=== PATIENT | male | born 1935 | race Caucasian/White ===

== ENCOUNTER → 2017-02-02 | Outpatient (CLI) | payer MEDICARE, OTHER ==
[~2017-02-02] MED LIST: ASPI81CH CHEW; ASPI81TA82 PO; DIOV320T PO; HYDR-2768 PO; HYDR25TA5 PO; SYNT25TA PO; TRAM50TA PO; ZOCO40TA PO
[2017-02-02 12:49] LABS: FREE T4 0.87 NG/DL (0.76-1.46)
== END ==
LOC: CLAB 11:54
DX: E03.9 Hypothyroidism, unspecified (principal)
CPT/HCPCS: 36415; 84439; 84443

== ENCOUNTER 2017-03-22 18:40 | Emergency (ER) | payer MEDICARE, OTHER ==
[~2017-03-22] VITALS: Ht 177.8 cm; Wt 75.0 kg
[~2017-03-22 18:40] MED LIST changes: -ASPI81CH CHEW; -HYDR25TA5 PO
[2017-03-22 19:37] VITALS: BP 199/77; PULSE 56; RESP 16; TEMP 97.9; O2SAT 100
[2017-03-22] MEDS ORDERED: ASPI81CH CHEW (19:40)
[2017-03-22] MEDS ORDERED: HYDR25TA5 PO (19:40)
[2017-03-22] MEDS ORDERED: DIOV320T PO (19:40)
[2017-03-22] MEDS ORDERED: ZOCO40TA PO (19:40)
[2017-03-22] MEDS ORDERED: SYNT25TA PO (19:40)
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
[2017-03-22 21:19] VITALS: BP 162/73; PULSE 49; RESP 18; O2SAT 100
== END 2017-03-22 21:36 | disposition home or self-care (01) ==
LOC: NEPD 18:40
DX: S06.0X1A Concussion with loss of consciousness of 30 minutes or less, initial encounter (principal); S40.812A Abrasion of left upper arm, initial encounter; S40.811A Abrasion of right upper arm, initial encounter; S80.812A Abrasion, left lower leg, initial encounter; S80.811A Abrasion, right lower leg, initial encounter; M79.1 Myalgia; V89.2XXA Person injured in unspecified motor-vehicle accident, traffic, initial encounter; E03.9 Hypothyroidism, unspecified; I10 Essential (primary) hypertension; E78.00 Pure hypercholesterolemia, unspecified; Z86.79 Personal history of other diseases of the circulatory system; Z85.118 Personal history of other malignant neoplasm of bronchus and lung; Z85.528 Personal history of other malignant neoplasm of kidney
CPT/HCPCS: 70450; 72125; 99284

== ENCOUNTER → 2017-05-25 | Outpatient (CLI) | payer MEDICARE, OTHER ==
[~2017-05-25] MED LIST changes: +ASPI81CH CHEW; -ASPI81TA82 PO; -HYDR-2768 PO; +HYDR25TA5 PO; -TRAM50TA PO
[2017-05-25 12:58] LABS: FREE T4 0.95 NG/DL (0.76-1.46)
== END ==
LOC: CLAB 12:06
DX: E03.9 Hypothyroidism, unspecified (principal)
CPT/HCPCS: 36415; 84439; 84443

== ENCOUNTER → 2017-09-27 | Outpatient (CLI) | payer MEDICARE, OTHER ==
[~2017-09-27] MED LIST changes: +ASPI-516 CHEW; -ASPI81CH CHEW
[2017-09-27 12:46] LABS: FREE T4 0.9 NG/DL (0.76-1.46)
== END ==
LOC: CLAB 11:44
DX: E03.9 Hypothyroidism, unspecified (principal)
CPT/HCPCS: 36415; 84439; 84443